=== PATIENT | female | born 1995 | race Caucasian/White ===

== ENCOUNTER 2017-05-15 19:57 | Observation (INO) | payer MEDICAID ==
--- NOTE | 2017-05-15 20:32 | ER Document Report ---
ED GI/ - General Chief Complaint: Pelvic Pain Stated Complaint: ABDOMINAL PAIN Time Seen by Provider: 05/15/17 20:21 Notes: patient is a 21 year old female who presents to the Ed complaining of abdominal pain with nausea since last evening. patient states she had suprapubic abdominal pain last evening 15-20 minutes after intercourse. She states that throughout today her pain has increased in location and severity, Patient states she feels distended now with sharp pain under the diaphragm bilaterally with suprapubic pain and nausea. alleviating factors are laying on her side. aggravating factors include palpation, straining for BM. Admits to IUD that she has had since september, denies checking strings bc her fingers are too short. Last BM was today, normal. Did not improve after BM. Denies vomiting , diarrhea, fevers, chills, vaginal pain, bleeding, discharge. LMP: 2 weeks ago PMH: IBD PSH: D&C, C section SH: vapes, denies etoh or drug use Allergies: denies PCP: [facility] OUTSIDE OF THE [place] IN LAST 30 DAYS: No - Related Data Allergies/Adverse Reactions: No Known Allergies Allergy (Verified 05/11/16 16:55) Past Medical History - Social History Smoking Status: Never Smoker Family History: Reviewed & Not Pertinent Patient has suicidal ideation: No Patient has homicidal ideation: No - Past Medical History Cardiac Medical History: Denies: Hx Hypertension, Hx Pulmonary Embolism, Hx Heart Murmur Pulmonary Medical History: Reports: Hx Asthma - as child Denies: Hx COPD, Hx Tuberculosis Neurological Medical History: Denies: Hx Cerebrovascular Accident, Hx Seizures Endocrine Medical History: Denies: Hx Hyperthyroidism, Hx Hypothyroidism Renal/ Medical History: Reports: Hx Ovarian Cysts. Denies: Hx Kidney Stones, Hx Peritoneal Dialysis, Hx Pelvic Inflammatory Disease Malignancy Medical History: Denies: Hx Breast Cancer, Hx Cervical Cancer, Hx Ovarian Cancer GI Medical History: Reports: Hx Gastroesophageal Reflux Disease. Denies: Hx Hiatal Hernia, Hx Ulcer Musculoskeltal Medical History: Denies Hx Fibromyalgia Psychiatric Medical History: Denies: Hx Bipolar Disorder, Hx Depression, Hx Post Traumatic Stress Disorder , Hx Schizophrenia Traumatic Medical History: Denies: Hx Fractures Infectious Medical History: Denies: Hx HIV Review of Systems - Review of Systems Constitutional: No symptoms reported Cardiovascular: No symptoms reported Respiratory: No symptoms reported Gastrointestinal: See HPI Genitourinary: No symptoms reported Female Genitourinary: See HPI -: Yes All other systems reviewed and negative Physical Exam - Vital signs Vitals: Temp Pulse Resp BP Pulse Ox 98.2 F 92 18 130/80 H 98 05/15/17 20:00 05/15/17 20:00 05/15/17 20:00 05/15/17 20:00 05/15/17 20:00 - Notes Notes: PHYSICAL EXAM GENERAL: Alert, interacts well. LUNGS: Clear to auscultation bilaterally, no wheezes, rales, or rhonchi. No respiratory distress. HEART: Regular rate and rhythm. No murmurs, gallops, or rubs. ABDOMEN: Soft, mildly distended with moderate diffuse tenderness. No guarding, rebound, or rigidity.. Bowel sounds present in all 4 quadrants. FEMALE : Normal external exam. No evidence of lesions, lacerations, bruising or vesicles. Speculum exam normal cervix closed. IUD strings present within cervix. No evidence of vaginal discharge with odor. No evidence of lesions. No vaginal bleeding. Bimanual exam normal no cervical motion tenderness. No adnexal mass or adnexal tenderness. EXTREMITIES: Moves all 4 extremities spontaneously. No edema, radial and dorsalis pedis pulses 2/4 bilaterally. No cyanosis. NEUROLOGICAL: Alert and oriented x4. Normal speech. PSYCH: Normal affect, normal mood. SKIN: Warm, dry, normal turgor. No rashes or lesions noted. Course - Re-evaluation Re-evalutation: 05/16/17 21:00 Patient is a 21-year-old female who is hemodynamically stable, no acute distress and afebrile. CBC stable without any evidence of leukocytosis or anemia. No evidence of electrolyte abnormalities. HCG is negative. Urinalysis clean. Pelvic exam without cervical motion tenderness. Patient still with tender abdomen on repeat abdominal exam. Will send for CT of the abdomen and pelvis. 05/16/17 01:01 CT the abdomen and pelvis shows a 4 x 3 cm cyst within the adnexa in small amount of free fluid. 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 Patient is agreeable with plan. Will be remedicated for pain and nausea. - Vital Signs Vital signs: Temp Pulse Resp BP Pulse Ox 98.2 F 92 18 130/80 H 98 05/15/17 20:00 05/15/17 20:00 05/15/17 20:00 05/15/17 20:00 05/15/17 20:00 - Laboratory Result Diagrams: 05/15/17 20:42 05/15/17 20:42 Laboratory results interpreted by me: 05/15/17 20:42 RDW 14.1 H Plt Count 127 L - Diagnostic Test Radiology reviewed: Image reviewed, Reports reviewed Discharge - Discharge Clinical Impression: Ovarian cyst Qualifiers: Laterality: left Qualified Code(s): N83.202 - Unspecified ovarian cyst, left side Condition: Stable Disposition: ADMITTED OBSERVATION Admitting Provider: [facility] Admitted: Post
[2017-05-15 20:44] LABS: APPEARANCE,URINE CLEAR; BILIRUBIN,URINE NEGATIVE (NEGATIVE); GLUCOSE, URINE NEGATIVE (NEGATIVE); KETONES,URINE NEGATIVE (NEGATIVE); LEUKOCYTE ESTERASE,URINE NEGATIVE (NEGATIVE); NITRITE,URINE NEGATIVE (NEGATIVE); PROTEIN,URINE NEGATIVE (NEGATIVE); URINE SPECIFIC GRAVITY 1.009; UROBILINOGEN,URINE NEGATIVE mg/dL (<2.0)
[2017-05-15 20:56] LABS: ABSOLUTE BASOPHILS # (AUTO) 0.1 10^3/uL (0.0-0.2); ABSOLUTE EOSINOPHILS # (AUTO) 0.1 10^3/uL (0.0-0.6); ABSOLUTE LYMPHOCYTES (AUTO) 1.9 10^3/uL (0.5-4.7); ABSOLUTE MONOCYTES (AUTO) 0.5 10^3/uL (0.1-1.4); ABSOLUTE NEUT (AUTO) 4.2 10^3/uL (1.7-8.2); BASOPHILS % (AUTO) 0.8 % (0-2); EOSINOPHILS % (AUTO) 1.9 % (0-6); HEMATOCRIT 42.3 % (36.0-47.0); HEMOGLOBIN 14.1 g/dL (12.0-15.5); LYMPHOCYTES % (AUTO) 27.4 % (13-45); MEAN CORPUSCULAR HEMOGLOBIN 27.6 pg (27.0-33.4); MEAN CORPUSCULAR HGB CONC 33.3 g/dL (32.0-36.0); MEAN CORPUSCULAR VOLUME 83 fl (80-97); MONOCYTES % (AUTO) 7.9 % (3-13); RED BLOOD COUNT 5.09 10^6/uL (3.72-5.28); RED CELL DISTRIBUTION WIDTH 14.1 % (11.5-14.0); WHITE BLOOD COUNT 6.8 10^3/uL (4.0-10.5)
[2017-05-15 21:06] LABS: ALANINE AMINOTRANSFERASE 29 U/L (9-52); ALBUMIN 4.6 g/dL (3.5-5.0); ALKALINE PHOSPHATASE 49 U/L (38-126); ANION GAP 14 (5-19); ASPARTATE AMINO TRANSFERASE 14 U/L (14-36); BILIRUBIN,DIRECT 0.3 mg/dL (0.0-0.4); BILIRUBIN,TOTAL 0.4 mg/dL (0.2-1.3); BLOOD UREA NITROGEN 12 mg/dL (7-20); CALCIUM 9.2 mg/dL (8.4-10.2); CARBON DIOXIDE 23 mmol/L (22-30); CHLORIDE 105 mmol/L (98-107); GLUCOSE 92 mg/dL (75-110); POTASSIUM 4.1 mmol/L (3.6-5.0); SODIUM 141.5 mmol/L (137-145); TOTAL PROTEIN 7.3 g/dL (6.3-8.2)
[2017-05-15] MEDS ORDERED: MORPHINE SULFATE 10 MG/ML INJ IV ONE (21:12)
--- NOTE | 2017-05-15 21:45 | RADIOLOGY REPORT (SQ) ---
EXAM DESCRIPTION: ACUTE ABDOMEN SERIES COMPLETED DATE/TIME: 05/15/2017 9:29 pm REASON FOR STUDY: generalized abdominal pain after intercourse w IUD COMPARISON: None. NUMBER OF VIEWS: Three views. TECHNIQUE: Frontal chest, supine abdomen and upright/decubitus abdomen radiographic images acquired. LIMITATIONS: None. FINDINGS: CHEST: Lungs clear of infiltrates. FREE AIR: None. No abnormal gas collections. BOWEL GAS PATTERN: Nonobstructive pattern. No dilated loops or air fluid levels. CALCIFICATIONS: No suspicious calcifications. HARDWARE: IUD artifact in the pelvis. SOFT TISSUES: No gross mass or suggestion of organomegaly. BONES: No acute fracture. No worrisome bone lesions. OTHER: No other significant finding. IMPRESSION: NO RADIOGRAPHIC EVIDENCE FOR ACUTE ABDOMINAL DISEASE. TECHNICAL DOCUMENTATION: JOB ID: [id number] [employer]- All Rights Reserved
--- NOTE | 2017-05-16 00:41 | RADIOLOGY REPORT (SQ) ---
EXAM DESCRIPTION: CT ABD/PELVIS WITH IV ONLY COMPLETED DATE/TIME: 05/16/2017 12:18 am REASON FOR STUDY: generalized abdominal pain COMPARISON: Abdominal series 05/15/2017. TECHNIQUE: CT scan of the abdomen and pelvis performed using helical scanning technique with dynamic intravenous contrast injection. No oral contrast. Images reviewed with lung, soft tissue, and bone windows. Reconstructed coronal and sagittal MPR images reviewed. Delayed images for evaluation of the urinary system also acquired. All images stored on PACS. All CT scanners at this facility use dose modulation, iterative reconstruction, and/or weight based d osing when appropriate to reduce radiation dose to as low as reasonably achievable (ALARA). [facility]: Dose Right [facility]: CareDose [facility]: Dose Right [facility]: Teradose 4D [facility]: [employer] CONTRAST TYPE AND DOSE: contrast/concentration: Isovue 370.00 mg/ml; Total Contrast Delivered: 74.0 ml; Total Saline Delivered: 66.0 ml RENAL FUNCTION: Creatinine 0.90 RADIATION DOSE: Up-to-date CT equipment and radiation dose reduction techniques were employed. CTDIv ol: 6.0 - 8.2 mGy. DLP: 738 mGy-cm.. LIMITATIONS: None. FINDINGS: LOWER CHEST: No consolidation or pleural effusion. LIVER: Diffuse decreased attenuation, suggestive of fatty infiltration. No masses. No dilated ducts. SPLEEN: Normal size. No focal lesions. PANCREAS: No significant calcifications. No adjacent inflammation or peripancreatic fluid collections . Pancreatic duct not dilated. GALLBLADDER: Present. ADRENAL GLANDS: No significant masses or asymmetry. RIGHT KIDNEY AND URETER: No solid masses. No significant calcifications. No hydronephrosis or hyd roureter. LEFT KIDNEY AND URETER: No solid masses. No significant calcifications. No hydronephrosis or hydr oureter. AORTA AND VESSELS: No abdominal aortic aneurysm. RETROPERITONEUM: No retroperitoneal adenopathy, hemorrhage or masses. BOWEL AND PERITONEAL CAVITY: No dilated bowel loops or inflammatory changes. No free air. APPENDIX: Normal. PELVIS: The urinary bladder is partially distended. An intrauterine device is seen at the uterus. T here is a 4.2 x 3.2 cm cystic lesion with hyperdense rim at the left adnexa, suggestive of a hemorrha gic cyst. There is a small amount of hyperdense free pelvic fluid. ABDOMINAL WALL: Small fat containing umbilical hernia. BONES: No acute findings. IMPRESSION: 4.2 x 3.2 cm probably hemorrhagic cyst at the left adnexa. Pelvic ultrasound can help i n better evaluation. Small amount of hyperdense free pelvic fluid, suggestive of hemoperitoneum. Fatty infiltration of the liver. TECHNICAL DOCUMENTATION: JOB ID: [id number] Quality ID # [id number]: Final reports with documentation of one or more dose reduction techniques (e.g., Au tomated exposure control, adjustment of the mA and/or kV according to patient size, use of iterative reconstruction technique) 2010 [employer]- All Rights Reserved
[2017-05-16] MEDS ORDERED: ONDANSETRON HCL INJ/PF 4 MG/2 ML SDV IV ONE (01:00)
[2017-05-16] MEDS ORDERED: MORPHINE SULFATE 10 MG/ML INJ IV ONE (01:00)
[2017-05-16] MEDS ORDERED: NORMAL SALINE 1000 ML 1,000 ML IV PRN (01:13)
--- NOTE | 2017-05-16 02:12 | RADIOLOGY REPORT (SQ) ---
EXAM DESCRIPTION: U/S NON OB PEL W/DOPPLER COMPLETED DATE/TIME: 05/16/2017 1:52 am REASON FOR STUDY: pelvic pain COMPARISON: CT abdomen and pelvis 05/16/2017. TECHNIQUE: Dynamic and static grayscale images acquired of the pelvis via transabdominal approach an d recorded on PACS. Additional selected color Doppler and spectral images recorded. LIMITATIONS: None. FINDINGS: UTERUS: Measures 8.5 x 3.6 x 5.7 cm. No focal myometrial mass was seen. ENDOMETRIAL STRIPE: Measures 2.4 mm in double wall thickness. An intrauterine device is seen in the endometrial cavity. CERVIX: Measures 2.6 cm in length and it is closed. RIGHT OVARY: Measures 2.3 x 2.8 x 1.8 cm. Flow by Doppler was shown to the right ovary. LEFT OVARY: Measures 5.5 x 3.1 x 4.0 cm. Flow by Doppler was shown to the left ovary. There is a 3. 8 x 3.2 x 2.8 cm hypoechoic area with internal echoes, appearance most consistent with a hemorrhagic cyst. FREE FLUID: Small amount of free pelvic fluid. IMPRESSION: 3.8 cm hemorrhagic cyst at the left ovary. This can be followup with pelvic ultrasound in 6-12 weeks to ensure resolution. Small amount of free pelvic fluid. TECHNICAL DOCUMENTATION: JOB ID: [id number] [place]-64 2010 [employer]- All Rights Reserved
[2017-05-16] MEDS ORDERED: DEXTROSE 40% GEL 15 GM TUBE PO PRN ×2 (02:37)
[2017-05-16] MEDS ORDERED: GLUCAGON,HUMAN RECOMB 1 MG INJ SUBCUT PRN (02:37)
[2017-05-16] MEDS ORDERED: DEXTROSE 50%-WATER 25 GM/50 ML DISP.SYRIN IV PRN ×2 (02:37)
[2017-05-16] MEDS ORDERED: OXYCODONE-ACETAMINOPHEN 5-325 MG TABLET PO PRN ×2 (02:58→02:59)
--- NOTE | 2017-05-16 04:28 | PDOC H&P ---
History of Present Illness Admission Date/PCP: 05/16/17 01:16 Patient complains of: suprapubic pain which began after intercourse approx 1.5 days ago. History of Present Illness: ARCHANA CASTAÑEDA is a 21 year old female Past Medical History LMP: [id number] Gynecological Infection: No Baby 1 Delivery: Spontaneous Vaginal Delivery Baby 2 Delivery: : Low Cervical, Transverse Cardiac Medical History: Denies: Hypertension, Pulmonary Embolism, Heart Murmur Pulmonary Medical History: Reports: Asthma - as child Denies: Chronic Obstructive Pulmonary Disease (COPD), Tuberculosis Neurological Medical History: Denies: Seizures Endocrine Medical History: Denies: Hyperthyroidism, Hypothyroidism Malignancy Medical History: Denies: Breast Cancer, Cervical Cancer, Ovarian Cancer GI Medical History: Reports: Gastroesophageal Reflux Disease Denies: Hiatal Hernia Musculoskeltal Medical History: Denies: Fibromyalgia Psychiatric Medical History: Denies: Bipolar Disorder, Depression, Post Traumatic Stress Disorder Infectious Medical History: Denies: HIV Past Surgical History Past Surgical History: Reports: Other - D&C Social History Information Source: Patient Lives with: Family Smoking Status: Unknown if Ever Smoked Frequency of Alcohol Use: None Hx Recreational Drug Use: No Drugs: None Hx Prescription Drug Abuse: No - Advance Directive Resuscitation Status: Full Code Family History Family History: Reviewed & Not Pertinent Parental Family History Reviewed: No Children Family History Reviewed: NA Sibling(s) Family History Reviewed.: NA Medication/Allergy Home Medications: Multivitamins W-Iron [Flintstones Chewable Multivit W/Fe Tab] 1 tab PO DAILY Doxylamine/Pyridoxine HCl [Diclegis Dr 10-10 mg Tablet] 1 each PO ASDIR PRN Omeprazole Magnesium [Prilosec Otc] 20 mg PO ASDIR PRN 08/04/16 Oxycodone HCl/Acetaminophen [Percocet 5-325 mg Tablet] 1 tab PO Q4HP PRN #30 tablet 08/07/16 Allergies/Adverse Reactions: No Known Allergies Allergy (Verified 05/11/16 16:55) Review of Systems Constitutional: ABSENT: chills, fever(s), headache(s), weight gain, weight loss Respiratory: ABSENT: cough, hemoptysis Gastrointestinal: ABSENT: abdominal pain, constipation, diarrhea, hematemesis, hematochezia, nausea, vomiting Neurological: ABSENT: abnormal gait, abnormal speech, confusion, dizziness, focal weakness, syncope Psychiatric: ABSENT: anxiety, depression, homidical ideation, suicidal ideation Endocrine: ABSENT: cold intolerance, heat intolerance, polydipsia, polyuria Hematologic/Lymphatic: ABSENT: easy bleeding, easy bruising Physical Exam - Physical Exam Vital Signs: Temp Pulse Resp BP Pulse Ox 97.9 F 62 16 97/56 L 98 05/16/17 02:05/16/17 02:05/16/17 02:05/16/17 02:05/16/17 02:28 General appearance: PRESENT: no acute distress, well-developed, well-nourished Head exam: PRESENT: atraumatic, normocephalic Eye exam: PRESENT: conjunctiva pink, EOMI, PERRLA. ABSENT: scleral icterus Respiratory exam: PRESENT: clear to auscultation sahil, symmetrical, unlabored Cardiovascular exam: PRESENT: RRR. ABSENT: diastolic murmur, rubs, systolic murmur Pulses: PRESENT: normal dorsalis pedis pul, +2 pedal pulses bilateral GI/Abdominal exam: PRESENT: normal bowel sounds, soft, tenderness - diffuse lower abd ttp, no rebound. +Rovsigs. ABSENT: distended, guarding, mass, organolmegaly, rebound Rectal exam: PRESENT: deferred Extremities exam: PRESENT: full ROM. ABSENT: calf tenderness, clubbing, pedal edema Neurological exam: PRESENT: alert, awake, oriented to person, oriented to place , oriented to time, oriented to situation, CN II-XII grossly intact. ABSENT: motor sensory deficit Psychiatric exam: PRESENT: appropriate affect, normal mood. ABSENT: homicidal ideation, suicidal ideation Skin exam: PRESENT: dry, intact, warm. ABSENT: cyanosis, rash Result Impressions: Acute Abdomen Series 05/15/17 20:31 IMPRESSION: NO RADIOGRAPHIC EVIDENCE FOR ACUTE ABDOMINAL DISEASE. Abdomen/Pelvis CT 05/15/17 22:20 IMPRESSION: 4.2 x 3.2 cm probably hemorrhagic cyst at the left adnexa. Pelvic ultrasound can help in better evaluation. Small amount of hyperdense free pelvic fluid, suggestive of hemoperitoneum. Fatty infiltration of the liver. Pelvis Ultrasound 05/16/17 00:49 IMPRESSION: 3.8 cm hemorrhagic cyst at the left ovary. This can be followup with pelvic ultrasound in 6-12 weeks to ensure resolution. Small amount of free pelvic fluid. Status: Imported from PACS Assessment & Plan - Diagnosis (1) Ovarian cyst Qualifiers: Laterality: left Qualified Code(s): N83.202 - Unspecified ovarian cyst, left side Is this a current diagnosis for this admission?: Yes Plan: Hemorrhagic left ovarian cyst with minimal free fluid in pelvis. Pt admitted for pain control and repeat labs. Currently hemodynamically stable. Pain rx given in ER - pt still well controlled with IV narcotics given in ER. Pt with Liletta placed in Sep 2016 due to poor menstrual cycle control with other OCPs. Menses was 2 weeks ago. Likely physiologic ovarian cyst now hemorrhagic with minimal bleeding after intercourse. May need to repeat US if Hb/Hct decreases significantly. IVF held upon arrival to floor to prevent decrease in Hct from dilutional. Will continue to monitor for s/s of continued bleeding or hemodynamic instability. - Time Time Spent: 30 to 50 Minutes Critical Time spent with patient: Less than 15 minutes Medications reviewed and adjusted accordingly: Yes Anticipated discharge: Home Within: within 48 hours - Inpatient Certification Based on my medical assessment, after consideration of the patient's comorbidities, presenting symptoms, or acuity I expect that the services needed warrant INPATIENT care.: Yes I certify that my determination is in accordance with my understanding of Medicare's requirements for reasonable and necessary INPATIENT services [42 CFR 412.3e].: Yes Medical Necessity: Need Close Monitoring Due to Risk of Patient Decompensation, Need for Pain Control, Risk of Complication if Not Cared For in Hospital Post Hospital Care: D/C [place] Documentation - Plan Summary Plan Summary: Repeat labs and reasses in am.
[2017-05-16 06:25] LABS: CHLAM PCR NOT DETECTED (NOT DETECT)
[2017-05-16 08:22] LABS: ABSOLUTE EOSINOPHILS # (AUTO) 0.1 10^3/uL (0.0-0.6); ABSOLUTE LYMPHOCYTES (AUTO) 1.5 10^3/uL (0.5-4.7); ABSOLUTE MONOCYTES (AUTO) 0.5 10^3/uL (0.1-1.4); ABSOLUTE NEUT (AUTO) 2.6 10^3/uL (1.7-8.2); BASOPHILS % (AUTO) 0.4 % (0-2); EOSINOPHILS % (AUTO) 2.4 % (0-6); HEMATOCRIT 36.3 % (36.0-47.0); HEMOGLOBIN 12.8 g/dL (12.0-15.5); HGB HCT DIFFERENCE 2.1; LYMPHOCYTES % (AUTO) 32.2 % (13-45); MEAN CORPUSCULAR HEMOGLOBIN 28.4 pg (27.0-33.4); MEAN CORPUSCULAR HGB CONC 35.3 g/dL (32.0-36.0); MEAN CORPUSCULAR VOLUME 81 fl (80-97); MONOCYTES % (AUTO) 10.5 % (3-13); RED BLOOD COUNT 4.52 10^6/uL (3.72-5.28); RED CELL DISTRIBUTION WIDTH 14.5 % (11.5-14.0); SEGMENTED NEUTROPHILS % (AUTO) 54.5 % (42-78); WHITE BLOOD COUNT 4.8 10^3/uL (4.0-10.5)
--- NOTE | 2017-05-16 08:42 | PDOC PROGRESS REPORT ---
Subjective Subjective:: Pt reports that her pain is a little better No new complaints Physical Exam - Physical Exam Vital Signs: Temp Pulse Resp BP Pulse Ox 98.2 F 62 16 92/56 L 98 05/16/17 07:35 05/16/17 07:35 05/16/17 07:35 05/16/17 07:35 05/16/17 07:35 General appearance: PRESENT: no acute distress, cooperative, well-developed GI/Abdominal exam: PRESENT: normal bowel sounds - mild left lower tnderness No guarding/rebound Result Laboratory Results: 05/16/17 07:56 05/16/17 07:56 WBC 4.8 RBC 4.52 Hgb 12.8 Hct 36.3 MCV 81 MCH 28.4 MCHC 35.3 RDW 14.5 H Plt Count 125 L Seg Neutrophils % 54.5 Lymphocytes % 32.2 Monocytes % 10.5 Eosinophils % 2.4 Basophils % 0.4 Absolute Neutrophils 2.6 Absolute Lymphocytes 1.5 Absolute Monocytes 0.5 Absolute Eosinophils 0.1 Absolute Basophils 0.0 Impressions: Acute Abdomen Series 05/15/17 20:31 IMPRESSION: NO RADIOGRAPHIC EVIDENCE FOR ACUTE ABDOMINAL DISEASE. Abdomen/Pelvis CT 05/15/17 22:20 IMPRESSION: 4.2 x 3.2 cm probably hemorrhagic cyst at the left adnexa. Pelvic ultrasound can help in better evaluation. Small amount of hyperdense free pelvic fluid, suggestive of hemoperitoneum. Fatty infiltration of the liver. Pelvis Ultrasound 05/16/17 00:49 IMPRESSION: 3.8 cm hemorrhagic cyst at the left ovary. This can be followup with pelvic ultrasound in 6-12 weeks to ensure resolution. Small amount of free pelvic fluid. Assessment & Plan - Diagnosis (1) Ovarian cyst Qualifiers: Laterality: left Qualified Code(s): N83.202 - Unspecified ovarian cyst, left side Is this a current diagnosis for this admission?: Yes - Time Time Spent with patient: Less than 15 minutes Medications reviewed and adjusted accordingly: Yes Anticipated discharge: Home Within: within 24 hours - Will d/c home Torsion precautions f/u in 4 weeks for Sono
[2017-05-16 09:34] VITALS: BP 110/58
== END 2017-05-16 09:50 | disposition home or self-care (01) ==
LOC: ER 19:57 → EH 05-16 01:16 → 2N 05-16 02:18
PROVIDERS: ADMIT Student in an Organized Health Care Education/Training Program; ATTEND Student in an Organized Health Care Education/Training Program
DX: N83.202 Unspecified ovarian cyst, left side (principal); Z30.431 Encounter for routine checking of intrauterine contraceptive device; Z32.02 Encounter for pregnancy test, result negative; N94.10 Unspecified dyspareunia; K21.9 Gastro-esophageal reflux disease without esophagitis; K76.0 Fatty (change of) liver, not elsewhere classified; Z72.0 Tobacco use; Z98.890 Other specified postprocedural states; Z87.19 Personal history of other diseases of the digestive system
CPT/HCPCS: 99285; 96361; 96374; 96375; 36415 ×2; 85025 ×2; 81025; 80053; 81001; 87491; 87591; 74022; 76856; 93976; 74177; G0378; J2270; J2405; J7030

== ENCOUNTER 2017-07-28 10:28 | Emergency (ER) | payer MEDICAID ==
--- NOTE | 2017-07-28 12:05 | RADIOLOGY REPORT (SQ) ---
EXAM DESCRIPTION: FOOT RIGHT COMPLETE COMPLETED DATE/TIME: 07/28/2017 11:40 am REASON FOR STUDY: ? FB in foot COMPARISON: None. NUMBER OF VIEWS: Three views. TECHNIQUE: AP, lateral and oblique radiographic images acquired of the right foot. LIMITATIONS: None. FINDINGS: MINERALIZATION: Normal. BONES: No acute fracture or dislocation. No worrisome bone lesions. JOINTS: No effusions. SOFT TISSUES: No radiopaque foreign body is appreciated. OTHER: No other significant finding. IMPRESSION: NEGATIVE STUDY OF THE RIGHT FOOT. NO RADIOGRAPHIC EVIDENCE OF ACUTE INJURY. TECHNICAL DOCUMENTATION: JOB ID: [id number] [employer]- All Rights Reserved
--- NOTE | 2017-07-28 14:16 | ER Document Report ---
ED Extremity Problem, Lower - General Chief Complaint: Foot Pain Stated Complaint: FOOT PAIN Time Seen by Provider: 07/28/17 11:58 Mode of Arrival: Ambulatory Information source: Patient Notes: Patient states that 2 weeks ago she dropped a shot glass on the floor and it shattered. She stepped on the glass with her right foot and she removed a piece of glass. She also states she thought she removed all the fragments but since that day she has been having pain in the bottom of her foot. She also states she just started a new job at [employer] and she is on her feet at all times during her shift. She did not go see anyone when it occured because she had just started the job and could not take time off. The pain is greatest when she returns home from work. TRAVEL OUTSIDE OF THE [place] IN LAST 30 DAYS: No - HPI Patient complains to provider of: Injury, Pain, Swelling Location: Foot - right plantar area at the ball of the foot. Occurred: Other - 2 weeks Where: Home Onset/Duration: Sudden, Persistent Quality of pain: Sharp, Throbbing Severity: Moderate Pain Level: 3 Context: Barefoot, Other - Puncture wound per patient Recent injury: Yes Associated symptoms: Other - painful ambulation Exacerbated by: Walking Relieved by: Elevation - Related Data Allergies/Adverse Reactions: No Known Allergies Allergy (Verified 07/28/17 10:31) Past Medical History - General Information source: Patient Last Menstrual Period: 2 months ago has the Lyetta/ Merana in. - Social History Smoking Status: Current Every Day Smoker - Smokes VAPS Cigarette use (# per day): No Chew tobacco use (# tins/day): No Smoking Education Provided: Yes Frequency of alcohol use: None Drug Abuse: None Lives with: Family Family History: Reviewed & Not Pertinent Patient has suicidal ideation: No Patient has homicidal ideation: No - Past Medical History Cardiac Medical History: Denies: Hx Hypertension, Hx Pulmonary Embolism, Hx Heart Murmur Pulmonary Medical History: Reports: Hx Asthma - as child Denies: Hx COPD, Hx Tuberculosis Neurological Medical History: Denies: Hx Cerebrovascular Accident, Hx Seizures Endocrine Medical History: Denies: Hx Hyperthyroidism, Hx Hypothyroidism Renal/ Medical History: Reports: Hx Ovarian Cysts. Denies: Hx Kidney Stones, Hx Peritoneal Dialysis, Hx Pelvic Inflammatory Disease Malignancy Medical History: Denies: Hx Breast Cancer, Hx Cervical Cancer, Hx Ovarian Cancer GI Medical History: Reports: Hx Gastroesophageal Reflux Disease. Denies: Hx Hiatal Hernia, Hx Ulcer Musculoskeltal Medical History: Denies Hx Fibromyalgia Psychiatric Medical History: Denies: Hx Bipolar Disorder, Hx Depression, Hx Post Traumatic Stress Disorder , Hx Schizophrenia Traumatic Medical History: Denies: Hx Fractures Infectious Medical History: Denies: Hx HIV Past Surgical History: Reports: Other - D&C Review of Systems - Review of Systems Constitutional: No symptoms reported EENT: No symptoms reported Cardiovascular: No symptoms reported Respiratory: No symptoms reported Gastrointestinal: No symptoms reported Genitourinary: No symptoms reported Female Genitourinary: No symptoms reported Musculoskeletal: Other - foot pain Skin: Other - Hard callus ball rihgt foot. Neurological/Psychological: No symptoms reported -: Yes All other systems reviewed and negative Physical Exam - Vital signs Vitals: Temp Pulse Resp BP Pulse Ox 98.5 F 86 14 131/77 H 99 07/28/17 10:31 07/28/17 10:31 07/28/17 10:31 07/28/17 10:31 07/28/17 10:31 Interpretation: Hypertensive - General General appearance: Appears well - HEENT Head: Normocephalic, Atraumatic Eyes: Normal - Respiratory Respiratory status: No respiratory distress Breath sounds: Normal. No: Decreased air movement, Nonproductive cough, Productive cough, Rales, Rhonchi, Stridor, Wheezing - Cardiovascular Rhythm: Regular Heart sounds: Normal auscultation Murmur: No - Extremities General upper extremity: Normal inspection General lower extremity: Tender, Normal ROM, Ilene's sign, Other - Exam of the bottomof the right foot at the ball of the foot is an area approc 2 cm across andf is circular in presentation. It appears callused. Tender to touch. Skin is thick. Trans illumination with light does not show any shadow or signs of a foriegn body. Mild erythema is noted surrounding area. No overt abscess noted.. No: Normal inspection, Nontender, Edema, Normal color, Normal strength, Normal temperature, Normal weight bearing Foot: Tender, No evidence of FB, Other - see above for examination Course - Vital Signs Vital signs: Temp Pulse Resp BP Pulse Ox 97.6 F 74 16 109/70 99 07/28/17 14:32 07/28/17 14:32 07/28/17 14:32 07/28/17 14:32 07/28/17 14:32 - Diagnostic Test Radiology reviewed: Reports reviewed Radiology results interpreted by me: 07/28/17 21:36 No sign of a foreign body. - Transfer of Care Notes: 07/28/17 21:37 I explained to the patient that glass is something that usually will work its way out if it has the time to do so. I told her if we can not see anything we do not go digging for it because that can lead to more complications. I informed her we would treat for a skin infection. I also wanted her to soak the foot 2 to 3 times a day in warm soapy water. to softed the area. I also informed her that if the pain continues she needds to see a ict analyst. I have given the name of the MD on the call list for today. She voiced understanding. 07/28/17 21:41 I also ordered a postop shoe put patient did not want but would take the crutches. Discharge - Discharge Clinical Impression: Cellulitis of right foot Foreign body in right foot Qualifiers: Encounter type: initial encounter Qualified Code(s): S90.851A - Superficial foreign body, right foot, initial encounter Condition: Good Disposition: HOME, SELF-CARE Instructions: Cellulitis ([facility]) Additional Instructions: As we discussed there is still possibility that there is a piece of glass in the lower right foot but cannot be seen on x-ray. Usually this will work its way out. I am placing you on antibiotics because of believe there is a small infection I want should be as nonweightbearing as possible and I want to use warm soaks 2-3 times a day as we discussed. Should you have any concerns or problems if it continues to feel painful after he been soaking for 3 or 4 days with the antibiotic I would recommend seeing a ict analyst and given you the number of the ict analyst boiler control room operator for the ER today it is Dr. Claudia Hurtado may contact the office to see if they can accommodate you. Prescriptions: Clindamycin HCl 300 mg PO Q6 #28 capsule Fluconazole [Diflucan] 150 mg PO ONCE PRN #1 tablet PRN Reason: Forms: Elevated Blood Pressure, Return to Work Referrals: CLAUDIA HURTADO, YASMANI [ACTIVE STAFF] - Follow up as needed
[2017-07-28 14:38] VITALS: BP 109/70
== END 2017-07-28 14:33 | disposition home or self-care (01) ==
LOC: ER 10:28
DX: S90.851A Superficial foreign body, right foot, initial encounter (principal); L03.115 Cellulitis of right lower limb; M79.673 Pain in unspecified foot; W25.XXXA Contact with sharp glass, initial encounter; F17.200 Nicotine dependence, unspecified, uncomplicated
CPT/HCPCS: 99283

== ENCOUNTER 2017-09-12 10:52 | Emergency (ER) | payer MEDICAID ==
[2017-09-12] MEDS ORDERED: ONDANSETRON 4 MG TAB.RAPDIS PO ONE (11:15)
[2017-09-12] MEDS ORDERED: HYDROCODONE/ACETAMINOPHEN 5-325 MG TABLET PO ONE (11:16)
--- NOTE | 2017-09-12 11:18 | ER Document Report ---
ED Medical Screen (RME) - General Chief Complaint: Abdominal Pain Stated Complaint: ABDOMINAL PAIN BLOODY STOOL VAGINAL BLEEDING Time Seen by Provider: 09/12/17 11:10 Notes: 21-year-old female patient reports onset the evening of 09/05/2017 of abdominal pain, diarrhea with blood and mucus in the stool. The diarrhea does not seem to be provoked by food or fluids, she does not have an appetite not eating much. She has not had any diarrhea today so far. She also reports onset 2 days ago of dark vaginal bleeding which is now just spotting. The abdominal pains are generalized, intermittent, shooting pain in the abdomen. She reports some of it feels similar to ovarian cyst pain in the past. Last menstrual period was in February of this year she has a Liletta IUD. I have greeted and performed a rapid initial assessment of this patient. A comprehensive ED assessment and evaluation of the patient, analysis of test results and completion of the medical decision making process will be conducted by additional ED providers. TRAVEL OUTSIDE OF THE [place] IN LAST 30 DAYS: No - Related Data Allergies/Adverse Reactions: No Known Allergies Allergy (Verified 09/12/17 10:53) Home Medications: Current Home Medications No Home Medications 09/12/17 [History] Past Medical History - Social History Frequency of alcohol use: None Drug Abuse: None - Past Medical History Cardiac Medical History: Denies: Hx Hypertension, Hx Pulmonary Embolism, Hx Heart Murmur Pulmonary Medical History: Reports: Hx Asthma - as child Denies: Hx COPD, Hx Tuberculosis Neurological Medical History: Denies: Hx Cerebrovascular Accident, Hx Seizures Endocrine Medical History: Denies: Hx Hyperthyroidism, Hx Hypothyroidism Renal/ Medical History: Reports: Hx Ovarian Cysts. Denies: Hx Kidney Stones, Hx Peritoneal Dialysis, Hx Pelvic Inflammatory Disease Malignancy Medical History: Denies: Hx Breast Cancer, Hx Cervical Cancer, Hx Ovarian Cancer GI Medical History: Reports: Hx Gastroesophageal Reflux Disease. Denies: Hx Hiatal Hernia, Hx Ulcer Musculoskeltal Medical History: Denies Hx Fibromyalgia Psychiatric Medical History: Denies: Hx Bipolar Disorder, Hx Depression, Hx Post Traumatic Stress Disorder , Hx Schizophrenia Traumatic Medical History: Denies: Hx Fractures Infectious Medical History: Denies: Hx HIV Past Surgical History: Reports: Other - D&C Physical Exam - Vital signs Vitals: Temp Pulse Resp BP Pulse Ox 98.1 F 87 20 124/79 99 09/12/17 10:58 09/12/17 10:58 09/12/17 10:58 09/12/17 10:58 09/12/17 10:58 Course - Vital Signs Vital signs: Temp Pulse Resp BP Pulse Ox 98.1 F 87 20 124/79 99 09/12/17 10:58 09/12/17 10:58 09/12/17 10:58 09/12/17 10:58 09/12/17 10:58
[2017-09-12 11:52] LABS: ABSOLUTE EOSINOPHILS # (AUTO) 0.1 10^3/uL (0.0-0.6); ABSOLUTE MONOCYTES (AUTO) 0.4 10^3/uL (0.1-1.4); ABSOLUTE NEUT (AUTO) 2.7 10^3/uL (1.7-8.2); BASOPHILS % (AUTO) 0.6 % (0-2); EOSINOPHILS % (AUTO) 2.2 % (0-6); HEMATOCRIT 45.4 % (36.0-47.0); HEMOGLOBIN 15.2 g/dL (12.0-15.5); LYMPHOCYTES % (AUTO) 37.2 % (13-45); MEAN CORPUSCULAR HEMOGLOBIN 27.2 pg (27.0-33.4); MEAN CORPUSCULAR HGB CONC 33.5 g/dL (32.0-36.0); MEAN CORPUSCULAR VOLUME 81 fl (80-97); MONOCYTES % (AUTO) 8.4 % (3-13); PLATELET COUNT 178 10^3/uL (150-450); RED BLOOD COUNT 5.58 10^6/uL (3.72-5.28); SEGMENTED NEUTROPHILS % (AUTO) 51.6 % (42-78); TOTAL CELLS COUNTED % (AUTO) 100 %; WHITE BLOOD COUNT 5.3 10^3/uL (4.0-10.5)
[2017-09-12 11:57] LABS: APPEARANCE,URINE CLEAR; BILIRUBIN,URINE NEGATIVE (NEGATIVE); COLOR,URINE STRAW; GLUCOSE, URINE NEGATIVE (NEGATIVE); KETONES,URINE NEGATIVE (NEGATIVE); LEUKOCYTE ESTERASE,URINE NEGATIVE (NEGATIVE); NITRITE,URINE NEGATIVE (NEGATIVE); PROTEIN,URINE NEGATIVE (NEGATIVE); URINE SPECIFIC GRAVITY 1.003; UROBILINOGEN,URINE NEGATIVE mg/dL (<2.0)
--- NOTE | 2017-09-12 12:03 | ER Document Report ---
ED GI/ - General Mode of Arrival: Ambulatory Information source: Patient TRAVEL OUTSIDE OF THE [place] IN LAST 30 DAYS: No - HPI Patient complains to provider of: Abdominal pain Onset: Last week Quality of pain: Sharp Vaginal bleeding (Compared to normal period): Spotting Associated symptoms: Blood in stool <KAZ WATT - Last Filed: 09/12/17 11:58> <MANOJ TINOCO - Last Filed: 09/12/17 17:03> - General Chief Complaint: Abdominal Pain Stated Complaint: ABDOMINAL PAIN BLOODY STOOL VAGINAL BLEEDING Time Seen by Provider: 09/12/17 11:10 Notes: Patient is a 21 year old female with a history of IBS and ovarian cysts presents to the emergency department complaining of sharp abdominal pain with associated symptoms of blood in stool and vaginal bleeding onset 6 days ago. Patient states that she had diarrhea with bright red blood in stool which stopped yesterday. Patient states she has not had a bowel movement since yesterday. Patient describes her vaginal bleeding as spotting which she states is abnormal due to her having Liletta IUD (placed in September 2016). Patient denies fevers. (KAZ WATT) - Related Data Allergies/Adverse Reactions: No Known Allergies Allergy (Verified 09/12/17 10:53) Past Medical History - General Information source: Patient - Social History Smoking Status: Former Smoker - currently vapes Frequency of alcohol use: None Drug Abuse: None Family History: Reviewed & Not Pertinent Patient has suicidal ideation: No Patient has homicidal ideation: No Pulmonary Medical History: Reports: Hx Asthma - as child Renal/ Medical History: Reports: Hx Ovarian Cysts GI Medical History: Reports: Hx Gastroesophageal Reflux Disease Past Surgical History: Reports: Hx Section, Hx Gynecologic Surgery - d/ c, Hx Oral Surgery - wisdom teeth, Other - D&C <KAZ WATT - Last Filed: 09/12/17 11:58> Review of Systems - Review of Systems Constitutional: No symptoms reported EENT: No symptoms reported Cardiovascular: No symptoms reported Respiratory: No symptoms reported Gastrointestinal: See HPI, Abdominal pain, Diarrhea, Other - blood in stool Genitourinary: No symptoms reported Female Genitourinary: See HPI, Vaginal bleeding Musculoskeletal: No symptoms reported Skin: No symptoms reported Hematologic/Lymphatic: No symptoms reported Neurological/Psychological: No symptoms reported -: Yes All other systems reviewed and negative <KAZ WATT - Last Filed: 09/12/17 11:58> Physical Exam <ALYSANIIVANIA - Last Filed: 09/12/17 11:58> <MANOJ TINOCO - Last Filed: 09/12/17 17:03> - Vital signs Vitals: Temp Pulse Resp BP Pulse Ox 98.1 F 87 20 124/79 99 09/12/17 10:58 09/12/17 10:58 09/12/17 10:58 09/12/17 10:58 09/12/17 10:58 - Notes Notes: GENERAL: Alert, interacts well. No acute distress. HEAD: Normocephalic, atraumatic. EYES: Pupils equal, round, and reactive to light. Extraocular movements intact. ENT: Oral mucosa moist, tongue midline. NECK: Full range of motion. Supple. Trachea midline. LUNGS: Clear to auscultation bilaterally, no wheezes, rales, or rhonchi. No respiratory distress. HEART: Regular rate and rhythm. No murmurs, gallops, or rubs. ABDOMEN: Soft, diffuse tenderness to palpation, more tender to LLQ and suprapubic area. Non-distended. Bowel sounds present in all 4 quadrants. EXTREMITIES: Moves all 4 extremities spontaneously. No cyanosis. NEUROLOGICAL: Alert and oriented x3. Normal speech. PSYCH: Normal affect, normal mood. SKIN: Warm, dry, normal turgor. No rashes or lesions noted. RECTAL: No sign of blood, no hemorrhoids, no fissures, no stool, no melena. (ALYSAKAZ) Course - Laboratory Result Diagrams: 09/12/17 11:33 09/12/17 11:33 <KAZ WATT - Last Filed: 09/12/17 11:58> - Laboratory Result Diagrams: 09/12/17 11:33 09/12/17 11:33 <MANOJ TINOCO - Last Filed: 09/12/17 17:03> - Re-evaluation Re-evalutation: 09/12/17 13:29 CBC unremarkable, CMP unremarkable, test negative, lipase normal, small blood in the urine but 0 RBCs, likely related to vaginal bleeding. Occult blood is negative. Abdominal exam has diffuse mild tenderness to palpation but nothing focal, abdomen is not surgical. Transvaginal ultrasound reveals no signs of ovarian cysts or torsion, no peritoneal bleeding. No displacement of the IUD. Given the normal white blood cell count I doubt acute infectious intra- abdominal process, doubt CT scan will contribute. Patient does have a history of IBS to which she states this feels similar. Recommend that the patient follow-up with GI as an outpatient, I will prescribe Bentyl for the abdominal pain. Patient should return to the emergency department for further rectal bleeding, worsening abdominal pain or any new or concerning symptoms including fever. Discharged home. (MANOJ TINOCO) - Vital Signs Vital signs: Temp Pulse Resp BP Pulse Ox 97.5 F 60 18 104/69 98 09/12/17 14:03 09/12/17 14:03 09/12/17 14:03 09/12/17 14:03 09/12/17 14:03 - Laboratory Laboratory results interpreted by me: 09/12/17 09/12/17 09/12/17 11:33 11:33 11:33 RBC 5.58 H BUN 6 L Urine Blood SMALL H Discharge <KAZ WATT - Last Filed: 09/12/17 11:58> <MANOJ TINOCO - Last Filed: 09/12/17 17:03> - Discharge Clinical Impression: Vaginal bleeding, Rectal bleeding Abdominal pain Qualifiers: Abdominal location: generalized Qualified Code(s): R10.84 - Generalized abdominal pain Condition: Stable Disposition: HOME, SELF-CARE Additional Instructions: Today your blood work was normal. No sign of infection. I do not know exactly what is causing your pain. You did not lose a significant amount of blood with your rectal bleeding. Please return to the emergency department for worsening pain, more rectal bleeding, fevers or any new or concerning symptoms. Otherwise please follow-up with a primary care physician in with a space operations officer for her IBS. Your vaginal bleeding is likely coming from the IUD. It is not uncommon to get irregular vaginal bleeding with an IUD. Today under transvaginal ultrasound there was no signs of an ovarian cyst. Prescriptions: Dicyclomine HCl [Bentyl 20 mg Tablet] 20 mg PO QIDP PRN #40 tablet PRN Reason: Referrals: KATHRYN MALDONADO MD [ACTIVE STAFF] - Follow up as needed DAMION VASQUEZ MD [ACTIVE STAFF] - Follow up as needed Scribe Attestation: 09/12/17 17:03 I personally performed the services described in the documentation, reviewed and edited the documentation which was dictated to the scribe in my presence, and it accurately records my words and actions. (MANOJ TINOCO) Scribe Documentation - Scribe Written by Scribe:: Rudi Garza, 09/12/2017 12:07 acting as scribe for :: Vimal <KAZ WATT - Last Filed: 09/12/17 11:58>
[2017-09-12 12:16] LABS: ALANINE AMINOTRANSFERASE 23 U/L (9-52); ALBUMIN 4.5 g/dL (3.5-5.0); ALKALINE PHOSPHATASE 46 U/L (38-126); ANION GAP 13 (5-19); ASPARTATE AMINO TRANSFERASE 14 U/L (14-36); BILIRUBIN,DIRECT 0.2 mg/dL (0.0-0.4); BILIRUBIN,TOTAL 0.4 mg/dL (0.2-1.3); BLOOD UREA NITROGEN 6 mg/dL (7-20); CARBON DIOXIDE 26 mmol/L (22-30); CHLORIDE 106 mmol/L (98-107); GLUCOSE 87 mg/dL (75-110); POTASSIUM 4.6 mmol/L (3.6-5.0); SODIUM 144.8 mmol/L (137-145)
--- NOTE | 2017-09-12 13:19 | RADIOLOGY REPORT (SQ) ---
EXAM DESCRIPTION: U/S NON OB PEL TV W/DOPPLER COMPLETED DATE/TIME: 09/12/2017 12:59 pm REASON FOR STUDY: abd pain, vag bleed, r/o ovarian cyst COMPARISON: 05/16/2017 TECHNIQUE: Dynamic and static grayscale images acquired of the pelvis via transvaginal approach and recorded on PACS. Additional selected color Doppler and spectral images recorded. LIMITATIONS: None. FINDINGS: UTERUS: Contour normal. No mass. IUD located within the lower uterine segment. ENDOMETRIAL STRIPE: No focal or generalized thickening. No masses. CERVIX: No nabothian cysts. RIGHT OVARY: No abnormal masses. RIGHT OVARY DOPPLER: Normal arterial vascular flow without evidence for torsion. LEFT OVARY: No abnormal masses. LEFT OVARY DOPPLER: Normal arterial vascular flow without evidence for torsion. FREE FLUID: None noted. OTHER: No other significant finding. MEASUREMENTS: UTERUS: 9.0 x 5.2 x 4.0 cm. ENDOMETRIAL STRIPE: 6 mm. RIGHT OVARY: 3.9 x 1.9 x 2.0 cm. LEFT OVARY: 2.7 x 1.9 x 1.7 cm. IMPRESSION: NORMAL TRANSVAGINAL PELVIC ULTRASOUND. IUD LOCATED WITHIN THE LOWER UTERINE SEGMENT. TECHNICAL DOCUMENTATION: JOB ID: [id number] [employer]- All Rights Reserved
[2017-09-12 14:05] VITALS: BP 104/69
== END 2017-09-12 14:04 | disposition home or self-care (01) ==
LOC: ER 10:52
DX: R10.84 Generalized abdominal pain (principal); R19.5 Other fecal abnormalities; N93.9 Abnormal uterine and vaginal bleeding, unspecified; Z87.891 Personal history of nicotine dependence
CPT/HCPCS: 99284; 36415; 83690; 84703; 85025; 82272; 80053; 81001; 76830; 93976; S0119

== ENCOUNTER 2017-09-27 09:53 | Day surgery (SDC) | payer MEDICAID ==
[~2017-09-27 09:53] MED LIST: FENTANYL CITRATE INJ/PF 100 MCG/2 ML AMPUL ONE; MIDAZOLAM 2 MG/2 ML INJ ONE; PROPOFOL INJ 200 MG/20 ML VIAL IV ONE
[2017-09-27 11:27] VITALS: BP 122/67
--- NOTE | 2017-09-27 13:37 | Operative Report ---
Operative Report DATE OF SURGERY: 09/27/17 Operative Report: The risks, benefits and alternatives of the procedure including risks of bleeding, surgery are explained to the patient in detail and informed consent is obtained. Patient was taken back to the endoscopy suite and placed in the left, lateral decubital position. Timeout was called. Propofol medications administered. A rectal examination is done which did not reveal any masses, tears or fissures. An Olympus videoscope was inserted into the patient's rectum. The scope was then carefully advanced all the way to the cecum. Cecum was identified by the usual anatomical landmarks including the ileocecal valve as well as the appendiceal office. Photodocumentation is obtained. The scope was then sequentially pulled back via the various segments of the colon including the ascending colon, hepatic flexure, transverse colon, splenic flexure, descending colon finding to the rectosigmoid portions of the colon. Retroflexion maneuvers performed. PREOPERATIVE DIAGNOSIS: Blood in stool POSTOPERATIVE DIAGNOSIS: Mild terminal ileitis status post biopsy. Colon polyp in the descending colon is removed via snare polypectomy and retrieved. internal hemorrhoids OPERATION: Colonoscopy with snare polypectomy. Colonoscopy with biopsy SURGEON: DAMION VASQUEZ ANESTHESIA: LMAC TISSUE REMOVED OR ALTERED: As noted above. COMPLICATIONS: None. ESTIMATED BLOOD LOSS: None. INTRAOPERATIVE FINDINGS: As noted above. PROCEDURE: Patient tolerated procedure well. No immediate postprocedure complications are noted. Patient discharged in good condition. Discharge date: 09/27/2017. Discharge diet: Regular. Discharge activity: Regular. 2-3 week follow-up to discuss findings. Patient is instructed to call the office or proceed to the emergency room should there be any further problems or questions. 3-5 year surveillance colonoscopy. We will await pathology.
== END 2017-09-27 11:25 | disposition home or self-care (01) ==
LOC: END 09:53
PROVIDERS: ATTEND Internal Medicine Gastroenterology
PROC: 0DBB8ZX Excision of Ileum, Via Natural or Artificial Opening Endoscopic, Diagnostic (ICD-10-PCS; principal; 2017-09-27 12:30)
PROC: 0DBF8ZX Excision of Right Large Intestine, Via Natural or Artificial Opening Endoscopic, Diagnostic (ICD-10-PCS; 2017-09-27 12:30)
DX: K52.9 Noninfective gastroenteritis and colitis, unspecified (principal); D12.4 Benign neoplasm of descending colon; K64.8 Other hemorrhoids; K92.1 Melena; Z79.899 Other long term (current) drug therapy
CPT/HCPCS: 45380; 45385; 88305 ×2; J2704; 811; J2250; J3010

== ENCOUNTER 2018-05-02 10:11 | Day surgery (SDC) | payer MEDICAID ==
[~2018-05-02 10:11] MED LIST changes: -FENTANYL CITRATE INJ/PF 100 MCG/2 ML AMPUL ONE; -MIDAZOLAM 2 MG/2 ML INJ ONE
--- NOTE | 2018-05-02 11:46 | Operative Report ---
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 Inlet patch noted. Gastritis status post biopsy rule out Helicobacter pylori. No GI bleeding noted OPERATION: EGD with biopsy SURGEON: DAMION VASQUEZ ANESTHESIA: LMAC TISSUE REMOVED OR ALTERED: As noted above. COMPLICATIONS: None. ESTIMATED BLOOD LOSS: None. INTRAOPERATIVE FINDINGS: As noted above. PROCEDURE: Patient tolerated the procedure well. No immediate postprocedure complications are noted. Patient discharged in good condition. Discharge date 05/02/2018. Discharge diet: Regular. Discharge activity: Regular. 2-3 week follow-up to discuss findings. Patient is instructed to call the office or proceed to the emergency room should there be any further problems or questions. We will wait on pathology.
[2018-05-02 12:02] VITALS: BP 100/70
== END 2018-05-02 12:10 | disposition home or self-care (01) ==
LOC: END 10:11
PROVIDERS: ATTEND Internal Medicine Gastroenterology
DX: K62.5 Hemorrhage of anus and rectum (principal); K29.50 Unspecified chronic gastritis without bleeding; K58.9 Irritable bowel syndrome, unspecified; K31.89 Other diseases of stomach and duodenum
CPT/HCPCS: 43239; 88305 ×2; J2704; 731

== ENCOUNTER → 2018-05-17 | Outpatient (CLI) | payer MEDICAID | LOC: OD 16:33 | PROVIDERS: ATTEND Internal Medicine Gastroenterology | DX: R10.84 Generalized abdominal pain (principal); R19.4 Change in bowel habit | CPT/HCPCS: 36415; 85652; 86140 ==

== ENCOUNTER → 2018-06-28 | Outpatient (CLI) | payer MEDICAID ==
--- NOTE | 2018-06-28 11:42 | RADIOLOGY REPORT (SQ) ---
EXAM DESCRIPTION: U/S ABDOMEN COMPLETE W/O DOP COMPLETED DATE/TIME: 06/28/2018 11:22 am REASON FOR STUDY: GENERALIZED ABD PAIN (R10.84) R10.84 GENERALIZED ABDOMINAL PAIN COMPARISON: None. TECHNIQUE: Dynamic and static grayscale images acquired of the abdomen and recorded on PACS. Additio nal selected color Doppler and spectral images recorded. LIMITATIONS: Midline bowel gas FINDINGS: PANCREAS: Midline pancreas unremarkable LIVER: No masses. Diffuse increased echogenicity from fatty infiltration. LIVER VASCULATURE: Normal directional flow of the main portal vein and hepatic veins. GALLBLADDER: Multiple shadowing stones in the gallbladder. Gallbladder is contracted with mild gallb ladder wall thickening up to 4 mm in thickness. ULTRASOUND-DETECTED DE JESUS'S SIGN: Negative. INTRAHEPATIC DUCTS AND COMMON DUCT: CBD and intrahepatic ducts normal caliber. No filling defects. INFERIOR VENA CAVA: Normal flow. AORTA: No aneurysm. RIGHT KIDNEY: Normal size. Normal echogenicity. No solid or suspicious masses. No hydronephros is. No calcifications. LEFT KIDNEY: Normal size. Normal echogenicity. No solid or suspicious masses. No hydronephrosi s. No calcifications. SPLEEN: 14 cm in length. Otherwise unremarkable. PERITONEAL AND PLEURAL SPACES: No ascites or effusions. OTHER: No other significant finding. IMPRESSION: Multiple stones in the gallbladder Fatty liver Mild splenomegaly TECHNICAL DOCUMENTATION: JOB ID: [id number]- All Rights Reserved Reading location - IP/workstation name: [email or web address]
== END ==
LOC: RAD 10:04
PROVIDERS: ATTEND Internal Medicine Gastroenterology
DX: K80.80 Other cholelithiasis without obstruction (principal); R10.84 Generalized abdominal pain; K76.0 Fatty (change of) liver, not elsewhere classified; R16.1 Splenomegaly, not elsewhere classified
CPT/HCPCS: 76700

== ENCOUNTER 2018-07-13 07:24 | Day surgery (SDC) | payer MEDICAID ==
[2018-07-08 09:55] LABS: HEMATOCRIT 42.3 % (36.0-47.0); HEMOGLOBIN 14.6 g/dL (12.0-15.5); MEAN CORPUSCULAR HEMOGLOBIN 28.3 pg (27.0-33.4); MEAN CORPUSCULAR HGB CONC 34.4 g/dL (32.0-36.0); MEAN CORPUSCULAR VOLUME 82 fl (80-97); PLATELET COUNT 137 10^3/uL (150-450); RED BLOOD COUNT 5.14 10^6/uL (3.72-5.28); RED CELL DISTRIBUTION WIDTH 14.5 % (11.5-14.0); WHITE BLOOD COUNT 4.6 10^3/uL (4.0-10.5)
[2018-07-08 10:31] LABS: ALANINE AMINOTRANSFERASE 22 U/L (9-52); ALBUMIN 4.6 g/dL (3.5-5.0); ALKALINE PHOSPHATASE 39 U/L (38-126); AMYLASE 32 U/L (30-110); ANION GAP 13 (5-19); ASPARTATE AMINO TRANSFERASE 13 U/L (14-36); BILIRUBIN,DIRECT 0.2 mg/dL (0.0-0.4); BILIRUBIN,TOTAL 0.5 mg/dL (0.2-1.3); BLOOD UREA NITROGEN 12 mg/dL (7-20); CALCIUM 9.5 mg/dL (8.4-10.2); CARBON DIOXIDE 27 mmol/L (22-30); CHLORIDE 104 mmol/L (98-107); GLUCOSE 99 mg/dL (75-110); POTASSIUM 4.4 mmol/L (3.6-5.0); TOTAL PROTEIN 7.2 g/dL (6.3-8.2)
[~2018-07-13 07:24] MED LIST changes: +ACETAMINOPHEN 325 MG TABLET PO PRN; +CEFAZOLIN 1 GM/D5W RTU 1 GM/50 ML RTUPB IV PRN; -PROPOFOL INJ 200 MG/20 ML VIAL IV ONE; +RINGERS SOLUTION,LACTATED 1,000 ML IV PRN
[2018-07-13] MEDS ORDERED: CEFAZOLIN 1 GM/D5W RTU 1 GM/50 ML RTUPB IV ONE (07:37)
[2018-07-13] MEDS ORDERED: MIDAZOLAM 2 MG/2 ML INJ ONE (08:57)
[2018-07-13] MEDS ORDERED: FENTANYL CITRATE INJ/PF 100 MCG/2 ML AMPUL ONE (08:57)
[2018-07-13] MEDS ORDERED: ACETAMINOPHEN 1,000 MG/100 ML RTUPB IV ONE (08:57)
[2018-07-13] MEDS ORDERED: PROPOFOL INJ 200 MG/20 ML VIAL IV ONE (08:57)
[2018-07-13] MEDS ORDERED: HYDROMORPHONE HCL INJ/PF 2 MG/ML AMPULE ONE (08:57)
[2018-07-13] MEDS ORDERED: SUCCINYLCHOLINE CHLORIDE INJ 200 MG/10 ML VIAL ONE (09:04)
[2018-07-13] MEDS ORDERED: ONDANSETRON HCL INJ/PF 4 MG/2 ML SDV ONE (09:04)
[2018-07-13] MEDS ORDERED: KETOROLAC TROMETHAMINE 60 MG/2 ML SDV ONE (09:04)
[2018-07-13] MEDS ORDERED: LIDOCAINE 2% INJ-PF (20 MG/ML) 2 ML AMPUL ONE (09:04)
[2018-07-13] MEDS ORDERED: DEXAMETHASONE SOD PHOSPHATE INJ 4 MG/1 ML VIAL ONE (09:04)
[2018-07-13] MEDS ORDERED: BUPIVACAINE HCL 0.5 % INJ/PF 30 ML SDV ONE (09:10)
[2018-07-13] MEDS ORDERED: DIPHENHYDRAMINE HCL 50 MG/ML VIAL IV PRN (09:52)
[2018-07-13] MEDS ORDERED: MORPHINE SULFATE 10 MG/ML INJ IV PRN (09:52)
[2018-07-13] MEDS ORDERED: MEPERIDINE HCL/PF INJ 25 MG/1 ML DISP.SYRIN IV PRN (09:52)
[2018-07-13] MEDS ORDERED: PROMETHAZINE HCL INJ 25 MG/1 ML VIAL IV PRN ×2 (09:52)
[2018-07-13] MEDS ORDERED: FENTANYL CITRATE INJ/PF 100 MCG/2 ML AMPUL IV PRN ×3 (09:52)
--- NOTE | 2018-07-13 10:27 | Operative Report ---
Operative Report DATE OF SURGERY: 07/13/18 PREOPERATIVE DIAGNOSIS: Symptomatic cholelithiasis and cholecystitis POSTOPERATIVE DIAGNOSIS: Same OPERATION: Laparoscopic cholecystectomy SURGEON: YASMEEN ROACH BRANCH SERVICE ASSOCIATE: URI ARELLANO ANESTHESIA: GA TISSUE REMOVED OR ALTERED: Gallbladder with contents COMPLICATIONS: None ESTIMATED BLOOD LOSS: Scant INTRAOPERATIVE FINDINGS: See below PROCEDURE: After obtaining informed consent, the patient was taken to the operating room. General Anesthesia was induced; the arms were extended, and the abdomen was exposed, and prepped and draped in a sterile fashion. Instrumentation was set up for laparoscopic cholecystectomy. Surgical plan and surgical timeout were conducted. A vertical incision was made above the umbilicus, and a verres needle was inserted uneventfully into the peritoneal cavity. Pneumoperitoneum was established. The verres needle was removed and a 5 mm trocar was inserted and a 5 mm flexible laparoscope was inserted. Visualization of the peritoneal cavity confirmed safe uneventful entry. Under direct visualization 3 additional 5 mm ports were established, one in the subxiphoid position and second in the subcostal position. There was no evidence of visceral or vascular injury to any structures. Of note there were multiple dense adhesions in the pelvis which all toe divided upon establishment of pneumoperitoneum. These were primarily between the anterior wall of the fundus, and the anterior pelvic wall likely due to previous section. Photos are taken. Visualization of the hepatobiliary anatomy revealed densities in between the gallbladder, gastroduodenal area and greater omentum. All of these adhesions were taken down under direct visualization using a combination of blunt gentle traction and hook cautery dissection. A grasper was placed on the fundus of the gallbladder and the gallbladder is elevated over the right surface of the liver; a second grasper was used to grasp the infundibulum of the gallbladder. The neck of the gallbladder and junction with the cystic duct was dissected out. The Cystic artery was in its usual location medial and cephalad to the cystic duct. The cystic artery was surrounded with a right angle clamp, clipped twice proximally and divided with laparoscopic scissors. We now opened the triangle of Calot by dividing the peritoneal reflection on both the medial and lateral sides of the cystic duct infundibular junction. The critical view was obtained. Multiple photos were taken. We now milked the cystic duct of any possible stones, clipped the cystic duct approximately 2 times once distally and divided with scissors. The gallbladder was now removed from the undersurface of the liver using hook cautery dissection. Graspers were repositioned and the gallbladder was removed uneventfully from the abdominal cavity through the super umbilical port site incision. The specimen was examined, then passed off to pathology for permanent analysis. We returned to the peritoneal cavity check for bleeding, and evidence of bile leak, and there was none. No stones were spilled during the procedure. We Confirmed satisfactory placement of clips on cystic duct and cystic artery were secured . At this point we felt the operation was complete. The subcutaneous tissue was then anesthetized with quarter percent Marcaine Sponge and needle counts are correct. All ports removed under direct visualization pneumoperitoneum evacuated, and 5 mm port wounds closed with 3-0 Vicryl suture, benzoin and Steri-Strips. The patient was extubated, and taken to the recovery room in stable condition. The physician logging assistant, Ms. Moody, provided assistance during this case by: Assisting and port insertion, retracting tissue, instillation of local anesthesia and closure of skin incisions.
[2018-07-13] MEDS ORDERED: OXYCODONE-ACETAMINOPHEN 5-325 MG TABLET PO PRN (10:36)
--- NOTE | 2018-07-13 10:36 | Discharge Summary ---
Discharge Summary (SDC) - Discharge Final Diagnosis: cholelithiasis Date of Surgery: 07/13/18 Discharge Date: 07/13/18 Condition: Stable Treatment or Instructions: [facility] [address] [place] [id number] Discharge Instructions: Laparoscopic Surgery 1. General Information: a. DO NOT DRIVE a car or operate dangerous machinery for 3-4 days or while taking narcotic pain pills. b. DO NOT consume alcohol, tranquilizers, sleeping medications or any non- prescribed medications for 24 hours unless approved by your doctor or as long as taking narcotic prescription medications. c. DO NOT make important decisions or sign any important papers for the first 24 hours after surgery. d. When discharged home the same day of surgery have a responsible person with you for the first night. 2. Activity Restrictions: 2 weeks . a. NO heavy lifting, straining abdominal muscles, bending over a lot, yard work, house work, or sports for [address] for 3-4 days . c. It is fine to go for walks, up and down steps, ride in a car. d. Elevate your head when sleeping/resting. 3. Treatment: a. You may shower 24 hours after surgery, no baths or swimming for 2 weeks. Remove band-aids or dressings before shower but leave paper strips (steri-strips ) on the skin to fall off on their own. If still on at postoperative visit they will be removed then. b. Drainage of fluid or blood is not unusual from an incision. If occurs, you can clean with peroxide and cotton ball daily and cover with dry gauze until the wound seals. c. If a lot of bleeding occurs, you can hold pressure with a gauze or cloth over the site for 10 minutes and it will usually stop. If bleeding continues you will need to call for possible evaluation in office or emergency room. 4. Medications: a. __Toradol_ may be taken for pain as needed, one tablet every 6 hours. b. You should resume all normal medications unless a change is specified by your doctors. 5. Diet: Begin with clear liquids and may progress to your normal diet if not nauseated. No high fat, high protein foods the day of surgery. 6. The following may occur after laparoscopic surgery: a. Shoulder or upper back ache from retained gas that should resolve in 1-2 days b. Soreness and bruising at incision sites will resolve with time. c. Scrotal swelling (labia in women) and bruising is often seen after hernia surgery. d. Sore throat e. Fatigue may last days to weeks. f. Difficulty urinating may occur and may need to come into emergency room for urinary catheter placement. 7. Notify Physician If: a. Worsening or pain not improved with pain medication b. Persistent nausea and vomiting c. Fever above 101 d. Persistent bleeding or swelling at operative site e. Unable to urinate and uncomfortable bladder 6-8 hours after surgery 8..Follow Up Care: a. Schedule a follow up appointment with your doctor for 2 weeks. In the event of any postoperative problems or questions or you may call the office during business hours or the On-Call physician evenings and weekends at [facility]. [facility] I understand the instructions for my postoperative care as described above and a copy has been given to me. Patient/Significant Other Witness Date Prescriptions: Ketorolac Tromethamine [Toradol 10 mg Tablet] 10 mg PO Q6HP PRN #20 tablet PRN Reason: Referrals: YANG HASTINGS MD [Primary Care Provider] - Discharge Diet: Other (Comments) - small bland meals Discharge Activity: No Lifting Over 10 Pounds, Walk Frequently Report the Following to Your Physician Immediately: Nausea, Vomiting, Fever over 101 Degrees, Unusual Bleeding, Redness, Drainage-Foul Smelling
[2018-07-13] MEDS ORDERED: OXYCODONE-ACETAMINOPHEN 5-325 MG TABLET ONE (11:41)
[2018-07-13 13:27] VITALS: BP 96/60
== END 2018-07-13 12:55 | disposition home or self-care (01) ==
LOC: OROUT 07:24
PROVIDERS: ATTEND Surgery
DX: K80.10 Calculus of gallbladder with chronic cholecystitis without obstruction (principal); F17.210 Nicotine dependence, cigarettes, uncomplicated; K58.1 Irritable bowel syndrome with constipation; Z79.899 Other long term (current) drug therapy
CPT/HCPCS: 36415; 82150; 85027; 81025; 80076; 80048; 88304 ×2; 47562; J2250; J3490 ×2; J0690; J1100; J1885; J3010; J0330; J2405; J2704; J0131; 790; J1170